=== PATIENT | female | born 1980 | race Two or more races ===

== ENCOUNTER → 2024-12-25 | Outpatient (CLI) | payer OTHER, SELFPAY ==
--- NOTE | 2024-12-25 09:56 | XR_ITS ---
Examination: Abdomen sonogram, complete Date and time of exam: December 25, 2024 1001 hours INDICATIONS: Constipation abdominal cramping and pain beginning 2 months ago. Technique: Multiple real-time grayscale transabdominal sonographic images of the abdomen have been obtained. Findings: Normal gallbladder Common bile duct 0.8 cm no definite stones Pancreatic head 2.9 cm Aorta not enlarged Liver 14.8 cm fatty infiltration smooth contour Normal hepatopedal portal venous flow Patent IVC Right kidney 11.7 cm cortex 2.0 cm Left kidney 11.1 cm cortex 2.4 cm Mild renal parenchymal scar formation Spleen 10.1 cm IMPRESSION: Abnormal enlargement common bile duct 0.8 cm, clinical correlation advised Consider MRCP follow-up to exclude common bile duct stones and/or stricture
== END | disposition home or self-care (01) ==
PROVIDERS: PCP Registered Nurse; Referring Provider Registered Nurse; Visit Provider Registered Nurse
DX: K83.8 Other specified diseases of biliary tract (principal)
CPT/HCPCS: 76700